=== PATIENT | male | born 1970 | race Caucasian/White ===

== ENCOUNTER → 2021-05-08 | Outpatient (CLI) | payer BC ==
--- NOTE | 2021-05-09 10:40 | ECHOF ---
Referral Reason:R01.1 CARDIAC MURMUR MEASUREMENTS -------- HEIGHT: 167.6 cm WEIGHT: 108.4 kg BP: 154/75 RVIDd: 3.5 cm (< 3.3) IVSd: 1.1 cm (0.6 - 1.1) LVIDd: 4.3 cm (3.9 - 5.3) LVPWd: 1.0 cm (0.6 - 1.1) IVSs: 1.6 cm LVIDs: 2.4 cm LVPWs: 1.7 cm LA Diam: 3.7 cm (2.7 - 3.8) LAESV Index (A-L): 19.39 ml/m Ao Diam: 2.8 cm (2.0 - 3.7) AV Cusp: 1.8 cm (1.5 - 2.6) MV EXCURSION: 12.495 mm (> 18.000) MV EF SLOPE: 22 mm/s (70 - 150) EPSS: 0.8 cm MV E Reese: 1.12 m/s MV DecT: 167 ms MV A Reese: 1.32 m/s MV E/A Ratio: 0.85 AV maxP.56 mmHg AV meanP.63 mmHg RAP: 5.00 mmHg RVSP: 34.87 mmHg FINDINGS -------- Sinus rhythm. This was a technically adequate study. The left ventricular size is normal. There is borderline concentric left ventricular hypertrophy. Overall left ventricular systolic function is normal with, an EF between 60 - 65 %. The right ventricle is mildly enlarged. Normal LA size by volume 22+/-6 ml/m2. The right atrium is normal in size. Interatrial and interventricular septum intact. There is mild aortic valve sclerosis. Peak/mean gradient across the Aortic Valve is 21.56mmHg / 12. 63mmHg. Can not r/o bicuspid valve The mitral valve is normal. Trace tricuspid regurgitation present. There is mild pulmonary hypertension. The right ventricula r systolic pressure, as measured by Doppler, is 34.87mmHg. Trace/mild (physiologic) pulmonic regurgitation. The aortic root size is normal. Normal inferior vena cava with normal inspiratory collapse consistent with estimated right atrial pre ssure of 5 mmHg. There is no pericardial effusion. CONCLUSIONS -------- 1. The left ventricular size is normal. 2. There is borderline concentric left ventricular hypertrophy. 3. Overall left ventricular systolic function is normal with, an EF between 60 - 65 %. 4. The right ventricle is mildly enlarged. 5. There is mild aortic valve sclerosis. 6. Peak/mean gradient across the Aortic Valve is 21.56mmHg / 12.63mmHg. 7. Can not r/o bicuspid valve 8. Trace tricuspid regurgitation present. 9. There is mild pulmonary hypertension. 10. The right ventricular systolic pressure, as measured by Doppler, is 34.87mmHg. 11. Trace/mild (physiologic) pulmonic regurgitation. 12. There is no pericardial effusion. CHARACTER ACTRESS: Edwina Monsalve RDCS
== END | disposition home or self-care (01) ==
LOC: RADECHMAIN 15:26
PROVIDERS: ATTEND Family Medicine
DX: I08.2 Rheumatic disorders of both aortic and tricuspid valves (principal); I27.20 Pulmonary hypertension, unspecified
CPT/HCPCS: 93306

== ENCOUNTER 2021-06-24 08:37 | Day surgery (SDC) | payer BC ==
[2021-06-21 09:16] VITALS: BMI 37.5
[2021-06-24 09:00] VITALS: RESP 18; TEMP 98.1
[2021-06-24] MEDS ORDERED: SODIUM CHLORIDE 0.9% 500 ML 500 ML IV ONE (09:00)
[2021-06-24] MEDS ORDERED: fentaNYL (PF) 50 MCG/ML 2 ML AMP ONE (09:54)
[2021-06-24] MEDS ORDERED: BENZOCAINE SPRAY 1 CAN MUCOUS MEM ONE (10:25)
[2021-06-24] MEDS ORDERED: MIDAZOLAM 2 MG/2 ML VIAL IV ONE ×2 (10:27→10:33)
[2021-06-24] MEDS ORDERED: fentaNYL (PF) 50 MCG/ML 2 ML AMP IV ONE (10:27)
--- NOTE | 2021-06-24 10:52 | P.PCN ---
Date of Procedure: 06/24/21 Operative Findings: TRANSESOPHAGEAL ECHOCARDIOGRAM PHYSICIAN PRACTICE MANAGER: MAGALIS CUI MD, RPVI INDICATION: Bicuspid aortic valve Rule out atrioseptal defect SEDATION: Conscious sedation COMPLICATION: None LEVEL OF SEDATION Moderate with sedation length of 12 minutes PROCEDURE DESCRIPTION: After obtaining an informed consent, the patient was brought to transesophageal echocardiogram room. Pulse oximetry and heart monitors were attached to the patient. The patient throat was sprayed using lidocaine. The patient was turned into left lateral position. After that a bite guard was placed. After an appropriate conscious sedation was initiated, the transesophageal echocardiogram was advanced through a bite guard into the mid esophagus. A 2-D echocardiogram images, color Doppler images, continuous wave images, pulse-wave images, of various cardiac structure were performed. After that the transesophageal echocardiogram probe was advanced into the stomach and fixed to obtain transgastric view was. The probe was brought into the mid esophagus. Inter-atrial septum was interrogated using 2D images, color Doppler images, and then contrast study. After that transesophageal echocardiogram was withdrawn out and upon withdrawing the descending thoracic aorta all the way up to the arch was evaluated. FINDING: The left ventricular dimension and systolic function appeared to be within normal limits. The ejection fraction appeared to be in the range of 50-55%. The right ventricle appeared to be mildly dilated. Left atrium appeared to be within normal limits for dimension but the right atrium appeared to be mildly dilated. Aortic valve is trileaflet valve without stenosis with mild regurgitation. The mitral valve seems to be normal with mild MR. There is mild tricuspid regurgitation and mild pulmonic insufficiency seen. The intra-atrial septum appeared to be intact without any evidence of shunt. The left atrial appendage appeared to be free from any thrombus CONCLUSION: 1. Normal left ventricular dimension and systolic function 2. Mildly dilated right ventricle with a normal function 3. Intact interatrial septum. Normal left atrial appendage 4. Trileaflet aortic valve without stenosis with mild insufficiency 5. Normal mitral valve with mild physiologic MR 6. Normal tricuspid valve and pulmonic valve
[2021-06-24 11:31] VITALS: PULSE 68
[2021-06-24 11:40] VITALS: BP 108/76
== END 2021-06-24 11:53 | disposition home or self-care (01) ==
LOC: CATHCVL 08:37
PROVIDERS: ATTEND Internal Medicine Interventional Cardiology
DX: Q23.1 Congenital insufficiency of aortic valve (principal); I34.0 Nonrheumatic mitral (valve) insufficiency; I10 Essential (primary) hypertension; E78.2 Mixed hyperlipidemia; G47.30 Sleep apnea, unspecified; E66.9 Obesity, unspecified; Z20.822 Contact with and (suspected) exposure to COVID-19; Z68.36 Body mass index [BMI] 36.0-36.9, adult; Z79.899 Other long term (current) drug therapy; Z88.8 Allergy status to other drugs, medicaments and biological substances; Z82.49 Family history of ischemic heart disease and other diseases of the circulatory system
CPT/HCPCS: 93312; 93325; 87635; J2250; J3010

== ENCOUNTER → 2021-07-24 | Outpatient (CLI) | payer BC ==
--- NOTE | 2021-07-24 08:31 | MR ---
EXAMINATION TYPE: MR cspine/lspine wo con DATE OF EXAM: 07/24/2021 COMPARISON: NONE HISTORY: Stiffness, aches, locking up, cervical disc disorder w/radiculopathy, lumbago w/sciatica shantanu . Cervical disc disorder with radiculopathy. Lumbago with sciatic pain bilaterally. TECHNIQUE: Multiplanar, multisequence imaging of the cervical and lumbar spine are performed without IV contrast. FINDINGS: MRI CERVICAL SPINE: FINDINGS: Sagittal images of the cervical spine show the craniocervical junction to appear within nor mal limits. The cervical and upper thoracic spinal cord is normal in caliber and signal. Reversal of normal cervical curvature is noted. The vertebral body heights are normal. Moderate disc space grady rowing C4-C5 level with heterogeneous Modic type II endplate changes. Mild disc space narrowing C5-C6 level. Axial images at C2-C3 level shows a tiny central disc protrusion effacing the anterior thecal sac, pa tent bilateral neural foramina. Axial images at C3-C4 level show broad disc bulge with more prominent central disc protrusion effacin g the anterior thecal sac of the ventral surface of spinal cord causing slight indentation and possib le mild increased signal axial image 42. There is mild to moderate left greater than right bilateral neural foraminal narrowing. Axial images at C4-C5 level shows broad-based right paracentral disc protrusion with central componen t effacing the anterior thecal sac up to ventral surface of spinal cord causing indenting and possibl e mild edema. There is asymmetric moderate to advanced right-sided neural foraminal narrowing. There is mild left-sided neural foraminal narrowing. Axial images at C5-C6 level shows broad-based posterior disc protrusion mildly effacing the anterior thecal sac with left foraminal component causing mild right and mild to moderate left-sided neural fo raminal narrowing. Axial images at C6-C7 level show lobulated broad-based posterior disc protrusion effacing anterior th ecal sac with [id number]-rn-[id number] bilateral neural foraminal narrowing. Axial images at C7-T1 level appear within normal limits. IMPRESSION: Reversal of normal cervical curvature with multilevel degenerative changes greatest at C3 -C4 and C4-C5 level as detailed above. L-SPINE: Sagittal images of the lumbar spine show vertebral body height to appear satisfactory. Slight grade 1 retrolisthesis L5 on S1. Multilevel disc desiccation. And mild disc space narrowing L5-S1 level The conus medullaris is normal in position and signal ending inferior L1 level. Heterogeneous Modic type II endplate changes anteriorly at L2 vertebra. Mild multilevel anterior spurring. Axial images show T12-L1 level to appear within normal limits. Axial images at L1-L2 level with mild broad disc bulge minimally effaces the anterior thecal sac. Shantanu ateral neural foramina are patent. Axial images at L2-L3 and L3-L4 levels appear within normal limits. Axial images at L4-L5 level shows mild to moderate facet arthropathy and ligamentum flavum hypertroph y. There is mild broad disc bulge mildly effaces the anterior thecal sac. There is moderate bilateral neural foraminal narrowing. Axial images at L5-S1 level moderate facet arthropathy bilaterally. There is tiny central disc protru masood. Spinal canal preserved. There is asymmetric mild to moderate left-sided neural foraminal narrow ing. IMPRESSION: Multilevel degenerative changes in the lumbar spine as detailed above.
== END | disposition home or self-care (01) ==
LOC: RADMRIMAIN 06:40
PROVIDERS: ATTEND Family Medicine
DX: M43.8X2 Other specified deforming dorsopathies, cervical region (principal); M47.22 Other spondylosis with radiculopathy, cervical region; M47.27 Other spondylosis with radiculopathy, lumbosacral region; M51.17 Intervertebral disc disorders with radiculopathy, lumbosacral region
CPT/HCPCS: 72141; 72148

== ENCOUNTER → 2021-09-23 | Outpatient (CLI) | payer BC ==
[2021-09-23 08:50] VITALS: BP 160/98; PULSE 64; RESP 18
--- NOTE | 2021-09-23 09:03 | P.PAINPG ---
PQRS Measure Charge Sheet Comment: HISTORY OF PRESENT ILLNESS: 51 yr old male as a referral from Dr Serrato presents today with severe and chronic mid to LBP x 2-3 yrs secondary to spondylosis, L4-L5 spondylolisthesis, severe BL neuroforaminal stenoses and facet arthropathy for evaluation. Pt works in a physically demanding job daily and is experiencing LBP 5/10 in intensity, dull/achy in the lower aspects of his lumbar spine which excalates as high as 9/10 with bending, twisting and lifting. Pain radiates down the BLEs and his LLE is occasionally accompanied with achy & burning with standing/ walking/ lifting for periods of 30 min or more. Pain is palliated with medications (Tylenol OTC, Excedrin, Flexeril prn), PT for his lumbar spine completed in June 2021, chiropractic treatments 1 time which provoked pain, home exercise regimen, hot tub use, repositioning and rest. PMH: HTN, Hyperlipidemia, GERD PSH: Vasectomy SH: No Tobacco use, Occasional ETOH use, No illicit drug use. and lives with spouse. 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 FH: Father- DM/CAD/. All: See list Meds: See list REVIEW OF ORGAN SYSTEMS: CONSTITUTIONAL: No fevers or chills. No recent weight loss. NEUROLOGICAL: + numbness and tingling along the distal extremities. No seizure disorders or headaches. MUSCULOSKELETAL: + pain PSYCHIATRIC: Denies current depression or suicidal thoughts. Physical Examinations : Constitutional : Cooperative , not in acute distress . Neurologic : Cranial nerve II to XII intact. No focal neurological deficits. Psychiatric : alert & oriented x 3. Matching mood & appropriate affect. Judgment & insight intact. Musculoskeletal : Cervical Spine Motor strength in the deltoid and biceps: Normal right side. Normal Left side Motor strength biceps and the wrist extensors: Normal right side . Normal left side Motor strength in the triceps muscle: Normal right side. Normal left side Deep tendon reflexes: Normal at the biceps. Normal at Brachioradialis. Normal at triceps Vertebral body tenderness to deep palpation over Cervical facet loading test: positive bilaterally Spurling test: positive bilaterally Neck distraction test: positive bilaterally Maria A sign: positive bilaterally Lumbar spine Motor strength lower extremities ,thigh and legs 5/5 Right side , 5/5 Left side Deep tendon reflexes : Normal Knee Jerk. Normal Ankle Jerk Vertebral body tenderness over L4, L5 Lumbar facet Loading Test: positive Right / positive Left Range of motion of the lumbar spine Flexion 30 degrees, extension 10 degrees Straight Leg Raise test: Left/ Right positive at <40 degree Carlos test: positive right / positive left. Severe tenderness over the Sacroiliac joint on the Right / Left sides Gaenslen test: positive bilaterally Seated flexion test: positive bilaterally. Sacral spine : Severe tenderness over the Sacroiliac joint: right side / left side Range of motion: Flexion of the lumbar spine <60 degrees Range of motion: Extension of the lumbar spine <20 degrees Gaenslen's Test positive Jose's Test positive Cralos test: positive right side / left side Thigh Thrust Test Sacral Thrust Test Imaging: MRI without contrast from 07/24/21 reviewed Assessment/ Plan : Lumbar spondylosis, Lumbar spondylolisthesis Recommendation of LESI L4-L5. May need a series of injections, up to 3 withina 6 mo period, for optimal pain relief. Risks, benefits of procedure discussed and patient verbalized understanding. Denies aspirin or anti- coagulant use or medical history of diabetes. Protocol for discontinuation/ continuation of medications khadar procedure discussed. All questions answered. I have spent greater than 30 minutes on patient care today. Dr Vernon was available by phone for the evaluation of this patient. The time was used to review the medical records including relevant urine studies and Prescription history (MAPs), review of the available imaging, evaluation and examination of the patient, coordination of care with the medical staff and if applicable referring physicians, as well as creation of the medical record - Pain Location Back Non-Pharmacological Interventions: Chiropractic Treatment, Heat, Home Exercise, Inactivity, Physical Therapy, Position/Reposition, Stretching Pharmacological Interventions: PRN Medication, Topical Medication Home Medications: Ambulatory Orders Cetirizine HCl [Zyrtec] 10 mg PO DAILY PRN 06/21/21 Lisinopril-Hctz 20-12.5 mg [Zestoretic 20-12.5] 1 tab PO DAILY 06/21/21 Metoprolol (Unknown Dose) 25 mg PO DAILY 06/21/21 Simvastatin 10 mg PO DAILY 06/21/21 Pantoprazole [Protonix] 40 mg PO DAILY 06/24/21 Cyclobenzaprine [Flexeril] 10 mg PO HS 09/23/21 Controlled Substance Measures - Controlled Substance Measures Is patient prescribed a controlled substance at discharge?: No
== END ==
LOC: PNWHC3 08:21
PROVIDERS: ATTEND Specialist
DX: M48.061 Spinal stenosis, lumbar region without neurogenic claudication (principal); M54.16 Radiculopathy, lumbar region; M43.16 Spondylolisthesis, lumbar region; I10 Essential (primary) hypertension; E78.5 Hyperlipidemia, unspecified; K21.9 Gastro-esophageal reflux disease without esophagitis; Z79.899 Other long term (current) drug therapy; Z91.041 Radiographic dye allergy status; Z91.030 Bee allergy status; Z88.6 Allergy status to analgesic agent; Z91.013 Allergy to seafood
CPT/HCPCS: 99211

== ENCOUNTER 2021-10-22 05:56 | Day surgery (SDC) | payer BC ==
[2021-10-22] MEDS ORDERED: LIDOCAINE 1% (10MG/ML) FOR IV START INTRADERMA PRN (06:09)
[2021-10-22] MEDS ORDERED: LACTATED RINGERS 1,000 ML IV SCH (06:09)
[2021-10-22 06:36] VITALS: TEMP 97.7
[2021-10-22] MEDS ORDERED: LACTATED RINGERS 1,000 ML IV ONE ×2 (06:52)
[2021-10-22] MEDS ORDERED: methylPREDNISolone ACETATE 80 MG/ML 1 ML VIAL ONE (06:56)
[2021-10-22] MEDS ORDERED: fentaNYL (PF) 50 MCG/ML 2 ML AMP ONE (06:56)
[2021-10-22] MEDS ORDERED: MIDAZOLAM 2 MG/2 ML VIAL ONE (06:56)
--- NOTE | 2021-10-22 07:10 | P.PCN ---
Date of Procedure: 10/22/21 Procedure(s) Performed: PREOPERATIVE DIAGNOSIS: 1- Lumbar Degenerative Disc Diseases 2-Lumbar spondylosis with Facet arthropathy without myelopathy POSTOPERATIVE DIAGNOSIS: Same as preop diagnosis. PROCEDURE 1. Lumbar epidural steroid injection under fluoroscopic guidance at the L4-5 level. (Fluoroscopy imaging was available in radiology department) . ANESTHESIA: Local with 1% lidocaine 3 ml and , moderate sedation with intravenous Versed 2 mg ,and fentanyle 100 Mcg EBL: Minimal PROCEDURE INDICATION: The patient with low back pain and radiculitis symptoms unresponsive to conservative treatment. Fluoroscopy was used to optimize visualization of the needle placement and to maximize safety. PROCEDURE DESCRIPTION / TECHNIQUE: The patient was seen and identified in the preoperative area. Risks, benefits, complications including but not limited to infections ,bleeding ,allergic reaction to the medications ,nerve damage and not complete pain releife , and alternatives were discussed with the patient. The patient agreed to proceed with the procedure and signed the consent. IV was started, and vital signs were stable. Patient was taken to the OR and time out was completed. The patient was placed in the prone position on procedure table and a pillow was placed under the abdomen to reduce lumbar lordosis. The lumbosacral area was prepped and draped in the usual sterile fashion.ere closely monitored during the procedure. Conscious sedation was used during the procedure to decrease patients anxiety. Vital signs was monitered during the entire procedure. Using anterior-posterior fluoroscopy, the L4-5 interlaminar space was identified and the skin over this site was marked and then infiltrated with 1% lidocaine subcutaneously. Subsequently, a 20-gauge Tuohy epidural needle was inserted and advanced toward the epidural space using the ``Loss of resistance technique and guided by AP and lateral fluoroscopynote=, after negative aspiration for blood and CSF and in the absence of paresthesias. Again after negative aspiration, a 6 ml mixture containing 80 mg of Depo-medrol , and 2 ml of preservative free Normal Saline, and 2 ml of preservative free lidocaine 1% solution was injected and a washout of epidurogram was seen. Needle was withdrawn intact, skin was cleansed, and bandages were applied. COMPLICATIONS: None DISPOSITION / PLANS: The patient was placed in a supine position and transferred to the recovery area in a stable condition for observation. There was no evidence of lower extremity motor or sensory deficit after the procedure. Patient was discharged from the recovery room after meeting discharge criteria. Home discharge instructions were given to the patient by the staff. The patient was reexamined prior to discharge. The patient will schedule a follow up in the clinic in 2-4 weeks. note= Isovue was not injected because patient has ALLERGY to IVP dye
[2021-10-22] MEDS ORDERED: IV FLUID CONTINUATION 1,000 ML IV ONE (07:12)
[2021-10-22 07:20] VITALS: RESP 16
[2021-10-22 07:51] VITALS: BP 137/70; PULSE 68
--- NOTE | 2021-10-22 08:26 | FL ---
Fluoroscopy HISTORY: Pain 1 seconds fluoroscopy time supplied to the referring clinician. 1 intraoperative C-arm images docume nt the procedure. See dictated report from anesthesia.
== END 2021-10-22 08:10 | disposition home or self-care (01) ==
LOC: ORPAIN 05:56
PROVIDERS: ATTEND Specialist
DX: M51.16 Intervertebral disc disorders with radiculopathy, lumbar region (principal); M47.26 Other spondylosis with radiculopathy, lumbar region; Z88.6 Allergy status to analgesic agent; Z91.030 Bee allergy status; Z91.013 Allergy to seafood; Z79.899 Other long term (current) drug therapy
CPT/HCPCS: 62323; J2250; J1040; J3010; 99152

== ENCOUNTER 2021-11-28 06:09 | Day surgery (SDC) | payer BC ==
[2021-11-27 11:50] VITALS: BMI 35.2
[~2021-11-28 06:09] MED LIST: LACTATED RINGERS 1,000 ML IV SCH; LIDOCAINE 1% (10MG/ML) FOR IV START INTRADERMA PRN
[2021-11-28 07:20] VITALS: RESP 16; TEMP 97
[2021-11-28] MEDS ORDERED: fentaNYL (PF) 50 MCG/ML 2 ML AMP ONE (07:24)
[2021-11-28] MEDS ORDERED: methylPREDNISolone ACETATE 80 MG/ML 1 ML VIAL ONE (07:24)
[2021-11-28] MEDS ORDERED: MIDAZOLAM 2 MG/2 ML VIAL ONE (07:24)
--- NOTE | 2021-11-28 07:35 | P.PCN ---
Date of Procedure: 11/28/21 Description of Procedure: 1. L4-L5 Epidural steroid injection under fluoroscopic guidance #2/3 , 2. Lumbar epidurogram PREOPERATIVE DIAGNOSIS: Lumbar degenerative disc disease, and Lumbar radiculopathy. POSTOPERATIVE DIAGNOSIS: Lumbar degenerative disc disease, and Lumbar radiculopathy. SURGEON: Odell Elise ANESTHESIA: Local with 1% lidocaine, and IV sedation : Midazolam 2 mg, and fentanyl 100 g Sedation supervision start time : 723 sedation Supervision end time:730 EBL: None. Specimen removed: None Fluoroscopic image: saved to electronic medical records PROCEDURE INDICATION: The patient had history of Lumbar degenerative disc disease and Lumbar radiculopathy. Failed to conservative therapy. Presented for epidural steroid injection. PROCEDURE DESCRIPTION: The patient was seen and identified in the preoperative area. Risks, benefits, complications, and alternatives were discussed with the patient. The patient agreed to proceed with the procedure and signed the consent. IV was started, and vital signs were stable. Patient was taken to the procedure area, and time out was completed. The patient was placed in the prone position on procedure table and a pillow was placed under the abdomen to reduce lumbar lordosis. The lumbosacral area was prepped and draped in the usual sterile fashion. Critical pause was taken. Vital signs were closely monitored during the procedure. Using anterior-posterior fluoroscopy, the L4-L5 interlaminar space was identified, and skin and deeper tissues were localized with 1% lidocaine. Using anterior-posterior fluoroscopy, lateral fluoroscopy, and mylw-am-hzimqjeibd technique, a 20 gauge 3.5 Tuohy epidural needle entered the epidural space. After negative aspiration of CSF and blood with no paresthesias, no Isovue used for the procedure as patient is ALLERGIC to shellfish. Magnevist is not available to use. Again after negative aspiration of CSF and blood with no paresthesias, 10 mL of block solution was injected into the epidural space. Block solution contained 80 mg of Depo-Medrol, and 9 mL of preservative-free normal saline. Needle was withdrawn intact, skin was cleansed, and bandages were applied. COMPLICATIONS: None. DISPOSITION / PLANS: The patient was placed in a supine position and transferred to the recovery area in a stable condition for observation. Patient was discharged from the recovery room after meeting discharge criteria. Home discharge instructions given to the patient by the staff. The patient was reexamined prior to discharge. The patient will schedule a follow up in the clinic in 4 weeks
[2021-11-28] MEDS ORDERED: IV FLUID CONTINUATION 900 ML IV ONE (07:39)
--- NOTE | 2021-11-28 07:44 | FL ---
Intraoperative/procedural fluoroscopic services were provided. Total fluoroscopy time is 3 seconds wi th a total of 2 submitted images to PACS. Please see the operative note for further details.
[2021-11-28] MEDS ORDERED: LACTATED RINGERS 1,000 ML IV SCH (07:45)
[2021-11-28 07:53] VITALS: BP 124/84; PULSE 65
== END 2021-11-28 08:08 | disposition home or self-care (01) ==
LOC: ORPAIN 06:09
DX: M51.16 Intervertebral disc disorders with radiculopathy, lumbar region (principal); M54.50 Low back pain, unspecified; I10 Essential (primary) hypertension; M06.9 Rheumatoid arthritis, unspecified; K21.9 Gastro-esophageal reflux disease without esophagitis; G47.33 Obstructive sleep apnea (adult) (pediatric); M19.90 Unspecified osteoarthritis, unspecified site; Z91.013 Allergy to seafood; Z91.030 Bee allergy status; Z88.6 Allergy status to analgesic agent; Z79.899 Other long term (current) drug therapy
CPT/HCPCS: 62323; J2250; J1040; J3010

== ENCOUNTER 2022-06-26 05:39 | Day surgery (SDC) | payer BC ==
[2022-06-26] MEDS ORDERED: LIDOCAINE 1% (10MG/ML) FOR IV START INTRADERMA PRN (05:54)
[2022-06-26] MEDS ORDERED: LACTATED RINGERS 1,000 ML IV SCH (05:54)
[2022-06-26 06:29] VITALS: RESP 16; TEMP 97.6
[2022-06-26] MEDS ORDERED: methylPREDNISolone ACETATE 80 MG/ML 1 ML VIAL ONE (07:00)
[2022-06-26] MEDS ORDERED: MIDAZOLAM 2 MG/2 ML VIAL ONE (07:00)
[2022-06-26] MEDS ORDERED: fentaNYL (PF) 50 MCG/ML 2 ML AMP ONE (07:00)
--- NOTE | 2022-06-26 07:16 | P.PCN ---
Date of Procedure: 06/26/22 Procedure(s) Performed: PREOPERATIVE DIAGNOSIS: 1-Lumbar radiculopathy . 2-lumbar degenerative disc disease. 3-lumbar spondylosis with lumbar facet arthropathy POSTOPERATIVE DIAGNOSIS: Same as preoperative diagnoses. PROCEDURE 1. Transforaminal epidural steroid injection under fluoroscopic guidance at right L4-5 level. (Fluoroscopy images stored on file in the radiology Department ) ANESTHESIA: Local with 1% lidocaine 3 ml , moderate sedation with intravenous Versed 2 mg and fentanyle 50 micrograms. Sedation start time : 0703 . Sedation. stop time : 0 710 . EBL: Minimal PROCEDURE INDICATION: The patient with low back pain and radiculopathy symptoms unresponsive to conservative treatment. PROCEDURE DESCRIPTION / TECHNIQUE: The patient was seen and identified in the preoperative area. Risks, benefits, complications, and alternatives were discussed with the patient. The patient agreed to proceed with the procedure and signed the consent. IV was started, and vital signs were stable. Patient was taken to the OR and time out was completed. The patient was placed in the prone position on procedure table and a pillow was placed under the abdomen to reduce lumbar lordosis. The lumbosacral area was prepped and draped in the usual sterile fashion. Critical pause was taken. Vital signs were closely monitored during the procedure. Conscious sedation was used during the procedure to decrease patient s anxiety. Using oblique fluoroscopy, the chin of the ``Scott dog at right L4-5 level was identified, and the skin and deeper tissues just below was localized with 1% lidocaine. Subsequently, a 22-gauge 5-inch spinal needle was advanced under a tunneled view fluoroscopic guidance just underneath the chin of the ``Scott dog at the right L4-5 Under lateral fluoroscopy, the needle was then advanced to the posterior border of the interforaminal space. After negative aspiration of CSF and blood and with no paresthesias, Subsequently, 3 mL of block solution containing 80 mg Depo-Medrol and 2 mL of 0.9% normal saline PF was injected.. At the end of the procedure, skin was cleansed, and bandages were applied. COMPLICATIONS:none DISPOSITION / PLANS: The patient was placed in a supine position and transferred to the recovery area in a stable condition for observation. There was no evidence of lower extremity motor or sensory deficit after the procedure. Patient was discharged from the recovery room after meeting discharge criteria. Home discharge instructions were given to the patient by the staff. The patient was reexamined prior to discharge. note= Isovue was not injected because patient had ALLERGY to IV dyes
[2022-06-26] MEDS ORDERED: IV FLUID CONTINUATION 1,000 ML IV ONE (07:26)
[2022-06-26 07:29] VITALS: PULSE 58
[2022-06-26 07:31] VITALS: BP 103/68
--- NOTE | 2022-06-26 07:35 | FL ---
Intraoperative/procedural fluoroscopic services were provided. Total fluoroscopy time is 4 seconds wi th a total of 1 submitted images to PACS. Please see the operative/procedural note for further detail s. DAP: [id number]
== END 2022-06-26 07:46 | disposition home or self-care (01) ==
LOC: ORPAIN 05:39
PROVIDERS: ATTEND Specialist
DX: M51.16 Intervertebral disc disorders with radiculopathy, lumbar region (principal); M47.26 Other spondylosis with radiculopathy, lumbar region; Z88.8 Allergy status to other drugs, medicaments and biological substances
CPT/HCPCS: 64483; J2250; J1040; J3010

== ENCOUNTER → 2022-07-23 | Outpatient (CLI) | payer BC ==
[2022-07-23 14:20] VITALS: BP 145/92; PULSE 77; RESP 18; TEMP 98.4
--- NOTE | 2022-07-23 14:34 | P.PAINPG ---
PQRS Measure Charge Sheet Comment: A 51 yr old male with a history of severe and chronic LBP secondary to lumbar DDD and spondylosis with facet arthropathy without myelopathy presents today for evaluation s/p R TFESI L4-L5. Pt states he experienced 80% pain relief x 4 wks s/p procedure. Pain level is provoked at 3/10 in intensity, constant, localized in the lumbar spine, achy in character w shooting towards the RLE. Pain is provoked by walking for periods of 30 min or more. Pain is alleviated with PT x 6 wks which ended in Apr 2022, physician guided home exercises, massage therapy monthly x 6 mo w next visit in July 2022, heat, ice, meds, topicals, repositioning and rest. Interventional pain procedures completed include R TFESI L4-5 Patient is currently on Tyl, Biofreeze gel Patient denies any side effects of the medication(s), denies excessive drowsiness or sleepiness, denies suicidal ideation and reports that the current pain medication is helping to control the pain and improve activities of daily living. Patient denies any motor or sensory deficits. Patient denies any fever or night sweats, denies any change in the bowel movements or urination. Physical Examination: -Constitutional: Cooperative. Not in acute distress . - Neurologic: Cranial nerve II to XII intact. No focal neurological deficits. - Psychatric: Alert & oriented x 3. Matching mood & appropriate affect. Judgment and insight intact. - Musculoskeletal: Cervical spine: Muscle bulk/ tone/ strength in the bilateral upper extremities normal Vertebral body tenderness to palpation over Spurling test positive Distraction test positive Facet loading test positive TTP Thoracic spine Muscle bulk / tone/ strength in the bilateral paraspinal muscles normal Vertebral body tender to palpation over Facet loading test positive TTP Lumbar spine: Motor bulk/ tone/ strength lower extremities , thigh and legs : 5/5 Deep tendon reflexes : Normal Knee Jerk. Normal Ankle Jerk . Vertebral body tenderness to palpation over Lumbar Facet Loading Test positive Straight Leg Raise: positive at 30 degrees right side/ left side Gaenslen's Test positive Sacral spine : Severe tenderness over the Sacroiliac joint: right side / left side Range of motion: Flexion of the lumbar spine <60 degrees Range of motion: Extension of the lumbar spine <20 degrees Gaenslen's Test positive right side / left side Carlos test: positive right side / left side Thigh Thrust Test positive right side / left side Sacral Thrust Test positive right side / left side Assessment and plan: Chronic LBP secondary to lumbar DDD, spondylosis with facet arthropathy without myelopathy Pt experienced sufficient and satisfactory pain relief s/p procedure. May return to clinic on an as needed basis. All questions answered. I have spent less than 30 minutes on patient care today. Dr Vernon was available by phone for the evaluation of this patient. The time was used to review the medical records including relevant urine studies and Prescription history (MAPs), review of the available imaging, evaluation and examination of the patient, coordination of care with the medical staff and if applicable referring physicians, as well as creation of the medical record PQRS Narrative: Hx Alcohol Use (MH) No Home Medications: Ambulatory Orders Cetirizine HCl [Zyrtec] 10 mg PO DAILY PRN 06/21/21 Lisinopril-Hctz 20-12.5 mg [Zestoretic 20-12.5] 1 tab PO DAILY 06/21/21 Simvastatin 10 mg PO DAILY 06/21/21 Pantoprazole [Protonix] 40 mg PO DAILY 06/24/21 Acetaminophen [Tylenol Extra Strength] 1,000 mg PO DIRECTED PRN 11/27/21 Metoprolol Tartrate 25 mg PO DAILY 11/27/21 Controlled Substance Measures - Controlled Substance Measures Is patient prescribed a controlled substance at discharge?: No
== END ==
LOC: PNWHC3 13:54
PROVIDERS: ATTEND Specialist
DX: M51.36 Other intervertebral disc degeneration, lumbar region (principal); M47.816 Spondylosis without myelopathy or radiculopathy, lumbar region; G89.29 Other chronic pain; Z91.02 Food additives allergy status; Z88.6 Allergy status to analgesic agent; Z91.041 Radiographic dye allergy status; Z91.013 Allergy to seafood
CPT/HCPCS: 99211

== ENCOUNTER → 2022-12-15 | Outpatient (CLI) | payer BC ==
[2022-12-15 12:44] VITALS: BP 155/106; PULSE 76; RESP 15; TEMP 98.2
--- NOTE | 2022-12-15 14:53 | P.PAINPG ---
Objective - Vital Signs Vital signs: Intake & Output 12/14/22 12/15/22 12/15/22 18:59 06:59 18:59 Weight 95.254 kg PQRS Measure Charge Sheet Comment: A 51 yr old male with a history of severe and chronic LBP secondary to lumbar DDD and spondylosis with facet arthropathy without myelopathy presents today for evaluation. Pain level is provoked at 3/10 in intensity, constant, localized in the lumbar spine, achy in character w shooting towards the R hip and RLE. Pain is provoked by walking for periods of 30 min or more. Pain is alleviated with PT x 6 wks which ended in Apr 2022, physician guided home exercises since Apr 2022, heat, ice, meds, topicals, repositioning and rest. Oswestry axial pain score of 13. Interventional pain procedures completed include AISHA L4-L5 x2, R TFESI L4-5 Patient is currently on Tyl, Aleve, Biofreeze gel Patient denies any side effects of the medication(s), denies excessive drowsiness or sleepiness, denies suicidal ideation and reports that the current pain medication is helping to control the pain and improve activities of daily living. Patient denies any motor or sensory deficits. Patient denies any fever or night sweats, denies any change in the bowel movements or urination. Physical Examination: -Constitutional: Cooperative. Not in acute distress . - Neurologic: Cranial nerve II to XII intact. No focal neurological deficits. - Psychatric: Alert & oriented x 3. Matching mood & appropriate affect. Judgment and insight intact. - Musculoskeletal: Cervical spine: Muscle bulk/ tone/ strength in the bilateral upper extremities normal Vertebral body tenderness to palpation over Spurling test positive Distraction test positive Facet loading test positive TTP Thoracic spine Muscle bulk / tone/ strength in the bilateral paraspinal muscles normal Vertebral body tender to palpation over Facet loading test positive TTP Lumbar spine: Motor bulk/ tone/ strength lower extremities , thigh and legs : 5/5 Deep tendon reflexes : Normal Knee Jerk. Normal Ankle Jerk . Vertebral body tenderness to palpation over L4 Lumbar Facet Loading Test positive Straight Leg Raise: positive at 30 degrees right side/ left side Gaenslen's Test positive Sacral spine : Severe tenderness over the Sacroiliac joint: right side / left side Range of motion: Flexion of the lumbar spine <60 degrees Range of motion: Extension of the lumbar spine <20 degrees Gaenslen's Test positive right side / left side Carlos test: positive right side / left side Thigh Thrust Test positive right side / left side Sacral Thrust Test positive right side / left side Assessment and plan: Chronic LBP secondary to lumbar DDD, spondylosis with facet arthropathy without myelopathy Recommendation of R TFESI L4-L5 #2. May need a series of injections for optimal pain relief. Risks, benefits of procedure discussed and patient verbal ized understanding. Protocol for discontinuation/continuation of medications surrounding procedure discussed. All questions answered. I have spent less than 30 minutes on patient care today. Dr Vernon was available by phone for the evaluation of this patient. The time was used to review the medical records including relevant urine studies and Prescription history (MAPs), review of the available imaging, evaluation and examination of the patient, coordination of care with the medical staff and if applicable referring physicians, as well as creation of the medical record PQRS Narrative: Hx Alcohol Use (MH) No Home Medications: Ambulatory Orders Cetirizine HCl [Zyrtec] 10 mg PO DAILY PRN 06/21/21 Lisinopril-Hctz 20-12.5 mg [Zestoretic 20-12.5] 1 tab PO DAILY 06/21/21 Simvastatin 10 mg PO DAILY 06/21/21 Pantoprazole [Protonix] 40 mg PO DAILY 06/24/21 Acetaminophen [Tylenol Extra Strength] 1,000 mg PO DIRECTED PRN 11/27/21 Metoprolol Tartrate 25 mg PO DAILY 11/27/21 Controlled Substance Measures - Controlled Substance Measures Is patient prescribed a controlled substance at discharge?: No
== END ==
LOC: PNWHC3 12:22
PROVIDERS: ATTEND Specialist
DX: M51.36 Other intervertebral disc degeneration, lumbar region (principal); M47.816 Spondylosis without myelopathy or radiculopathy, lumbar region; G89.29 Other chronic pain; Z91.030 Bee allergy status; Z91.041 Radiographic dye allergy status; Z91.013 Allergy to seafood; Z88.6 Allergy status to analgesic agent; Z88.8 Allergy status to other drugs, medicaments and biological substances
CPT/HCPCS: 99211

== ENCOUNTER → 2023-01-19 | Outpatient (CLI) | payer BC ==
--- NOTE | 2023-01-19 14:36 | P.PAINPG ---
PQRS Measure Charge Sheet Comment: A 51 yr old male with a history of severe and chronic LBP secondary to lumbar DDD and spondylosis with facet arthropathy without myelopathy presents today for evaluation s/p R TFESI L4-L5 #2. Pt states he experienced 50 % pain relief x 2- 3 wks s/p procedure. Pain level is provoked at 8/10 in intensity, constant, localized in the lumbar spine, achy in character w shooting towards the R hip and RLE. Pain is provoked by walking for periods of 30 min or more. Pain is alleviated with PT x 6 wks which ended in Apr 2022, physician guided home exercises daily since Apr 2022, heat, ice, meds, topicals, repositioning and rest. Oswestry axial pain score of 12. Interventional pain procedures completed include AISHA L4-L5 x2, R TFESI L4-5 x2 Patient is currently on Tyl, Aleve, Biofreeze gel Patient denies any side effects of the medication(s), denies excessive drowsiness or sleepiness, denies suicidal ideation and reports that the current pain medication is helping to control the pain and improve activities of daily living. Patient denies any motor or sensory deficits. Patient denies any fever or night sweats, denies any change in the bowel movements or urination. Physical Examination: -Constitutional: Cooperative. Not in acute distress . - Neurologic: Cranial nerve II to XII intact. No focal neurological deficits. - Psychatric: Alert & oriented x 3. Matching mood & appropriate affect. Judgment and insight intact. - Musculoskeletal: Cervical spine: Muscle bulk/ tone/ strength in the bilateral upper extremities normal Vertebral body tenderness to palpation over Spurling test positive Distraction test positive Facet loading test positive TTP Thoracic spine Muscle bulk / tone/ strength in the bilateral paraspinal muscles normal Vertebral body tender to palpation over Facet loading test positive TTP Lumbar spine: Motor bulk/ tone/ strength lower extremities , thigh and legs : 5/5 Deep tendon reflexes : Normal Knee Jerk. Normal Ankle Jerk . Vertebral body tenderness to palpation over L5 Lumbar Facet Loading Test positive Straight Leg Raise: positive at 30 degrees right side/ left side Gaenslen's Test positive Sacral spine : Severe tenderness over the Sacroiliac joint: right side / left side Range of motion: Flexion of the lumbar spine <60 degrees Range of motion: Extension of the lumbar spine <20 degrees Gaenslen's Test positive right side / left side Carlos test: positive right side / left side Thigh Thrust Test positive right side / left side Sacral Thrust Test positive right side / left side Assessment and plan: Chronic LBP secondary to lumbar DDD, spondylosis with facet arthropathy without myelopathy Recommendation of R TFESI L5-S1. May need a series of injections for optimal pain relief. Risks, benefits of procedure discussed and patient verbalized understanding. Protocol for discontinuation/continuation of medications surrounding procedure discussed. All questions answered. I have spent less than 30 minutes on patient care today. Dr Vernon was available by phone for the evaluation of this patient. The time was used to review the medical records including relevant urine studies and Prescription history (MAPs), review of the available imaging, evaluation and examination of the patient, coordination of care with the medical staff and if applicable referring physicians, as well as creation of the medical record PQRS Narrative: Hx Alcohol Use (MH) No Home Medications: Ambulatory Orders Cetirizine HCl [Zyrtec] 10 mg PO DAILY PRN 06/21/21 Lisinopril-Hctz 20-12.5 mg [Zestoretic 20-12.5] 1 tab PO DAILY 06/21/21 Simvastatin 10 mg PO DAILY 06/21/21 Pantoprazole [Protonix] 40 mg PO DAILY 06/24/21 Acetaminophen [Tylenol Extra Strength] 1,000 mg PO DIRECTED PRN 11/27/21 Metoprolol Tartrate 25 mg PO DAILY 11/27/21 Controlled Substance Measures - Controlled Substance Measures Is patient prescribed a controlled substance at discharge?: No
[2023-01-19 14:41] VITALS: BP 154/100; PULSE 67; RESP 16; TEMP 97.9
== END ==
LOC: PNWHC3 13:51
PROVIDERS: ATTEND Specialist
DX: M51.36 Other intervertebral disc degeneration, lumbar region (principal); M47.816 Spondylosis without myelopathy or radiculopathy, lumbar region; G89.29 Other chronic pain; Z91.030 Bee allergy status; Z88.6 Allergy status to analgesic agent; Z91.041 Radiographic dye allergy status; Z88.8 Allergy status to other drugs, medicaments and biological substances; Z91.013 Allergy to seafood
CPT/HCPCS: 99211

== ENCOUNTER 2023-02-12 06:17 | Day surgery (SDC) | payer BC ==
[2023-02-12] MEDS ORDERED: LACTATED RINGERS 1,000 ML IV SCH (06:20)
[2023-02-12 07:26] VITALS: TEMP 97
[2023-02-12] MEDS ORDERED: ROPIVACAINE 5MG/ML 20ML VIAL ONE (07:49)
[2023-02-12] MEDS ORDERED: DEXAMETHASONE SOD PHOSPHATE 10 MG/ML 1 ML VIAL ONE (07:49)
--- NOTE | 2023-02-12 08:15 | P.PCN ---
Date of Procedure: 02/12/23 Description of Procedure: PREOPERATIVE DIAGNOSIS: 1-Lumbar radiculopathy . 2-lumbar degenerative disc disease. 3-lumbar spondylosis with lumbar facet arthropathy without myelopathy POSTOPERATIVE DIAGNOSIS: 1-lumbar radiculopathy. 2-lumbar degenerative disc disease. 3-lumbar spondylosis with facet arthropathy without myelopathy PROCEDURE 1. Transforaminal epidural steroid injection under fluoroscopic guidance at right L4-5 level. (Fluoroscopy images stored on file in the radiology Department ) 2. Lumbar epidurogram . ANESTHESIA: Local with 1% lidocaine 3 ml. EBL: Minimal PROCEDURE INDICATION: The patient with low back pain and radiculopathy symptoms unresponsive to conservative treatment. PROCEDURE DESCRIPTION / TECHNIQUE: The patient was seen and identified in the preoperative area. Risks, benefits, complications, and alternatives were discussed with the patient. The patient agreed to proceed with the procedure and signed the consent. IV was started, and vital signs were stable. Patient was taken to the OR and time out was completed. The patient was placed in the prone position on procedure table and a pillow was placed under the abdomen to reduce lumbar lordosis. The lumbosacral area was prepped and draped in the usual sterile fashion. Critical pause was taken. Vital signs were closely monitored during the procedure. Using oblique fluoroscopy, the chin of the ``Scott dog at L4-5 level was identified, and the skin and deeper tissues just below was localized with 1% lidocaine. Subsequently, a 22-gauge 3.5-inch spinal needle was advanced under a tunneled view fluoroscopic guidance just underneath the chin of the ``Scott dog at the right/left L4-5 Under lateral fluoroscopy, the needle was then advanced to the posterior border of the interforaminal space. Needle tip position was in the posterior and inferior half of the L4-L5 foramen in lateral view .After negative aspiration of CSF and blood and with no paresthesias, no contrast was used secondary to the patient's ALLERGY to contrast. 3 mL of block solution containing 20 mg of Decadron mixed with 1 mL of 0.9% normal saline PF was injected. Needle was removed . At the end of the procedure, skin was cleansed, and bandages were applied. COMPLICATIONS:none DISPOSITION / PLANS: The patient was placed in a supine position and transferred to the recovery area in a stable condition for observation. There was no evidence of lower extremity motor or sensory deficit after the procedure. Patient was discharged from the recovery room after meeting discharge criteria. Home discharge instructions were given to the patient by the staff. The patient was reexamined prior to discharge.
[2023-02-12 08:18] VITALS: BP 154/88; PULSE 78; RESP 18
--- NOTE | 2023-02-12 08:59 | FL ---
EXAMINATION TYPE: FL guided pain mgmt statistic DATE OF EXAM: 02/12/2023 HISTORY: Fluoroscopy time Total dose area product (DAP) in uGy*m?, mGy*cm? (or similar): 0.0279 IMPRESSION: 1. Fluoroscopy time.
== END 2023-02-12 08:16 | disposition home or self-care (01) ==
LOC: ORPAIN 06:17
PROVIDERS: ATTEND Pain Medicine Interventional Pain Medicine
DX: M51.16 Intervertebral disc disorders with radiculopathy, lumbar region (principal); M47.26 Other spondylosis with radiculopathy, lumbar region; I10 Essential (primary) hypertension; G47.33 Obstructive sleep apnea (adult) (pediatric); Z88.8 Allergy status to other drugs, medicaments and biological substances; Z79.899 Other long term (current) drug therapy
CPT/HCPCS: 64483; J1100; J2795